=== PATIENT | female | born 1945 | race Caucasian/White ===

== ENCOUNTER 2016-03-10 15:15 | Inpatient (IN) ==
--- NOTE | 2016-03-10 17:00 | Pulmonology History & Physical ---
Assessment and Plan (1) Bronchiectasis with acute lower respiratory infection Status: Acute Assessment and plan: She has been on 2 rounds of oral antibiotics as an outpatient and has not cleared. She is admitted for intravenous antibiotics as well as Solu-Medrol and bronchodilators. Current Visit: Yes (2) Acute bronchitis with bronchospasm Status: Acute Assessment and plan: She will need bronchodilators and we will use low-dose corticosteroids. Watch her blood sugars closely while on them. Current Visit: Yes (3) Hyperlipidemia Status: Acute Assessment and plan: Control with medications. She is chronically on pravastatin. Current Visit: Yes (4) Diabetes mellitus type 2 in nonobese Status: Acute Assessment and plan: Continue her home dose of metformin and add sliding scale insulin. Steroids and stress of the acute illness or likely to make her glucoses harder to control. Current Visit: Yes 12 point system: reviewed and no additional remarkable complaints except as stated - Cardiovascular Cardiovascular: Present: chest pain at rest, dyspnea, dyspnea on exertion - Respiratory Respiratory: Present: cough, dyspnea, dyspnea on exertion, wheezing, change in phlegm color - Gastrointestinal Gastrointestinal: Present: dyspepsia History of Present Illness Chief complaint: cough congestion shortness of breath History of present illness: Ms. Yoder is a 70 year old female who has cylindrical bronchiectasis in her left lower lobe. She has had a cough and congestion going on for about 3 weeks including wheezing. She has been treated with oral antibiotics and really hasn' t improved. She was put on theophylline and Zanaflex in the ER a few days ago but it didn't help. She was having some pain in her chest which was atypical and had a cardiac catheterization about 3 weeks ago that was negative. She has never been a smoker. She's allergic to slip but no antibiotics. She has been on Mucinex without much help. Home Medications Medication Instructions Recorded Confirmed Type Albuterol Sulfate [Albuterol Neb] 0.083 % INH Q4-6H PRN 03/06/16 03/06/16 History Albuterol Sulfate [Proair HFA] 90 mcg INH Q6HR PRN 03/06/16 03/06/16 History Cholecalciferol (Vitamin D3) 1,000 unit PO DAILY 03/06/16 03/06/16 History [Vitamin D3] Ferrous Gluconate 324 mg PO BID 03/06/16 03/06/16 History Fexofenadine [Libby] 180 mg PO DAILY 03/06/16 03/06/16 History Lansoprazole [Prevacid] 30 mg PO DAILY 03/06/16 03/06/16 History Pravastatin Sodium 40 mg PO DAILY 03/06/16 03/06/16 History Valsartan/Hydrochlorothiazide 1 each PO DAILY 03/06/16 03/06/16 History [Valsartan-Hctz 320-12.5 mg Tab] metFORMIN [Glucophage] 1,000 mg PO BID 03/06/16 03/06/16 History Levofloxacin Tab [Levaquin Tab] 750 mg PO DAILY #10 tablet 03/07/16 Rx Theophylline ER Cap (24 Hr) 200 mg PO DAILY #10 capsule 03/07/16 Rx [[place]-24] Tizanidine HCl [Zanaflex] 2 mg PO Q6H #40 capsule 03/07/16 Rx Allergies Allergy/AdvReac Type Severity Reaction Status Date / Time shrimp Allergy Vomiting Verified 03/06/16 21:55 Medical,Surgical,& Family Hx - Medical History Cardio: History of: Hypertension Endocrine: History of: Diabetes Mellitus (NIDDM), Dyslipidemia Respiratory: History of: Asthma - Surgical History Cardiac Surgeries: Sugical HX of: Cardiac Catheterization - Social History Smoking Status: Never smoker Exam (Pulmonay) H&P - Constitutional Vitals: Temperature 90.9 degrees. Pulse 80 respirations 20 blood pressure 140/70. Weight is 204. Exam: Patient is alert and oriented. She appears short of breath. Pupils react to light. Throat is clear. Chest reveals some scattered rhonchi primarily in the left lower lobe. She does have some expiratory wheezing. Heart normal rate rhythm no murmurs. Abdomen soft nontender no masses. Bowel sounds present. Extremities no clubbing cyanosis or edema. Calves nontender.
[2016-03-10] MEDS ORDERED: DEXTROSE 50% 25 GM/50 ML VIAL IV PRN (19:22)
[2016-03-10] MEDS ORDERED: GLUCAGON 1 MG VIAL IM PRN (19:22)
[2016-03-10] MEDS ORDERED: FEXOFENADINE 180 MG TABLET PO PRN (19:37)
[2016-03-10] MEDS ORDERED: ALBUTEROL 2.5 MG/3 ML NEB RESP TX PRN (19:49)
[2016-03-10] MEDS: DORNASE ALFA 2.5 MG/2.5 ML VIAL RESP TX SCH (20:00)
[2016-03-10] MEDS: BUDESONIDE 0.25 MG/2 ML NEB RESP TX SCH (20:00)
[2016-03-10 20:35] LABS: Basophils % 0.1 % (0.0-0.8); Hematocrit 39.1 VOL% (35.7-47.0); Hemoglobin 12.6 GM/DL (12.0-16.0); Immature Granulocytes Absolute 0.46 #; Lymphocytes # 2.5 10*3/uL (1.4-4.0); Lymphocytes % 21.9 % (21.3-54.2); Mean Corpuscular HGB Conc 32.2 GM/DL (32-36); Mean Corpuscular Hemoglobin 30 PG (27-34); Mean Corpuscular Volume 91.8 FL (87-102); Monocytes % 8.4 % (1.7-12.7); NRBC # 0.02 10*3/uL; Neutrophils # 7.5 10*3/uL (1.4-7.4); Neutrophils % 65.6 % (38.7-73.9); Platelet Count 276 T/CUMM (130-400); Red Blood Count 4.26 MC/CUMM (3.8-5.5); Red Cell Distribution Width 14.3 % (9.3-17.3); White Blood Count 11.4 T/CUMM (4-12)
[2016-03-10] MEDS: INSULIN REGULAR 100 UNIT/ML SUBCUT SCH (20:57)
[2016-03-10] MEDS: AZITHROMYCIN 250 MG TABLET PO SCH (20:58)
[2016-03-10] MEDS: PRAVASTATIN 40 MG TABLET PO SCH (20:58)
[2016-03-10] MEDS: methylPREDNISolone SOD SUC 40 MG/1 ML VIAL IV SCH (21:00)
[2016-03-10] MEDS: LEVOFLOXACIN INJ 500 MG in PREMIX 1 EACH IV SCH (21:00)
[2016-03-10 21:05] LABS: Alanine Aminotransferase 26 U/L (13-56); Albumin 3.6 G/DL (3.4-5.0); Alkaline Phosphatase 65 U/L (45-117); Aspartate Amino Transferase 8 U/L (0-37); Bilirubin,Total < 0.39 MG/DL (0.2-1.0); Blood Urea Nitrogen 34 MG/DL (7-18); Calcium 9.6 MG/DL (8.5-10.1); Total Protein 6.5 G/DL (6.4-8.3)
[2016-03-10 21:06] LABS: Glucose 284 MG/DL (74-106); Osmolality,Calculated 298.3 MOS/KG (273-304); Potassium 4.4 MMOL/L (3.5-5.1); Sodium 141 MMOL/L (136-145)
[2016-03-10 21:23] LABS: Free T4 (Free Thyroxine) 1.24 NG/DL (0.76-1.46); Thyroid Stimulating Hormone 0.878 uIU/ml (0.358-3.74)
[2016-03-10] MEDS: CEFEPIME 1,000 MG in SODIUM CHLORIDE 0.9% 100 ML IV SCH (23:05)
[2016-03-10 23:39] LABS: Apearance,Urine CLEAR (Clear); Bilirubin,Urine Negative (Negative); Blood, Urine Negative (Negative); Glucose,Urine (UA) >=500 mg/dL (Negative); Hyaline Casts,Urine 3 /LPF (0-3); Ketones,Urine Negative (Negative); Mucus,Urine Occasional /LPF (Occasional); Nitrite,Urine Negative (Negative); Protein,Urine Negative; Squamous Epithelial Cell,Urine Occasional /HPF (0-10); Urine Color Yellow (Yellow); Urine Specific Gravity 1.018 (1.001-1.035); Urine Urobilinogen < 2.0 EU/DL (0.2-1.0); WBC,Urine 1 /HPF (0-6)
[2016-03-11] MEDS: ALBUTEROL/IPRATROPIUM 3 ML NEB RESP TX SCH ×4 (00:09→19:50)
[2016-03-11] MEDS: BUDESONIDE 0.25 MG/2 ML NEB RESP TX SCH ×2 (06:56→19:50)
--- NOTE | 2016-03-11 07:14 | EKG Report ---
Stationary ECG Study [facility] Test Date: 03/11/2016 7:09:09 AM Pat Name: TREY CEDILLO Department: Room: 518 Gender: F Reconcilement Clerk: BETH : 1945 Requested by: Bryce Gillis Order Number: [id number] Reading MD: MAREN GARCIA Intervals [place] Rate: 85 P: 81 [place]: 148 QRS: 65 QRSD: 95 T: 60 QT: 363 QTc: 406 Interpretive Statements SINUS RHYTHM POSSIBLE INFERIOR MYOCARDIAL INFARCTION, PROBABLY OLD Electronically Signed On 03-11-16 18:10:08 [employer] by MAREN GARCIA [email or web address]
[2016-03-11] MEDS: DORNASE ALFA 2.5 MG/2.5 ML VIAL RESP TX SCH ×2 (08:13→19:50)
--- NOTE | 2016-03-11 08:18 | Pulmonology Progress Note ---
Pulmonary - PN: Subj Interval history: This 70-year-old white female has cylindrical objects his left lower lobe. She' s had a cough congestion and acute bronchitis going on for about 3 weeks. She' s had 2 rounds of antibiotics and hasn't improved. She is admitted yesterday. Says she feels a little better this morning but still got short of breath during the night. Oxygen saturations are in the upper 90s on room air, however I think nasal oxygen may help her with the hyperventilation. Exam (Progress Note) - Constitutional Vitals: Period Temp Pulse Resp BP Sys/Dorman Pulse Ox Last 24 Hr 97 F-98.3 F 75-97 18-22 110-160/52-97 94-100 Exam: Patient is alert oriented. Vital signs are normal. HEENT: Pupils react to light. Throat is clear. Neck supple no bruits. Chest reveals some expiratory rhonchi bilaterally. Heart normal rate rhythm no murmurs no rubs no gallops. Abdomen soft no masses. Extremities no clubbing cyanosis or edema. Calves nontender. Results - Labs CBC & BMP: 03/10/16 20:26 03/10/16 20:26 Lab Results: I have reviewed the past 24 hour labs Assessment and Plan (1) Bronchiectasis with acute lower respiratory infection Status: Acute Assessment and plan: She has been on 2 rounds of oral antibiotics as an outpatient and has not cleared. She is admitted for intravenous antibiotics as well as Solu-Medrol and bronchodilators. 03/11/2016 empiric antibiotics, bronchodilators, Solu-Medrol, mucolytics. Current Visit: Yes (2) Acute bronchitis with bronchospasm Status: Acute Assessment and plan: She will need bronchodilators and we will use low-dose corticosteroids. Watch her blood sugars closely while on them. 03/11/16 still having some bronchospasm. Current Visit: Yes (3) Hyperlipidemia Status: Acute Assessment and plan: Control with medications. She is chronically on pravastatin. Current Visit: Yes (4) Diabetes mellitus type 2 in nonobese Status: Acute Assessment and plan: Continue her home dose of metformin and add sliding scale insulin. Steroids and stress of the acute illness or likely to make her glucoses harder to control. 03/11/2016 should be able to manage with sliding scale. Glucoses are in the upper 200s. We will increase sliding scale a bit. Current Visit: Yes
[2016-03-11] MEDS: INSULIN REGULAR 100 UNIT/ML SUBCUT SCH ×4 (08:50→20:20)
[2016-03-11] MEDS: metFORMIN 500 MG TABLET PO SCH ×2 (08:51→16:54)
[2016-03-11] MEDS: hydroCHLOROthiazide 12.5 MG CAPSULE PO SCH (08:51)
[2016-03-11] MEDS: CHOLECALCIFEROL 1,000 UNIT TABLET PO SCH (08:52)
[2016-03-11] MEDS: methylPREDNISolone SOD SUC 40 MG/1 ML VIAL IV SCH ×2 (08:52→20:20)
[2016-03-11] MEDS: FERROUS SULFATE 325 MG TABLET PO SCH (08:52)
[2016-03-11] MEDS: PANTOPRAZOLE 40 MG TABLET PO SCH (08:52)
[2016-03-11] MEDS: VALSARTAN 160 MG TABLET PO SCH (08:52)
[2016-03-11] MEDS: CEFEPIME 1,000 MG in SODIUM CHLORIDE 0.9% 100 ML IV SCH ×2 (09:00→21:40)
[2016-03-11] MEDS: LEVOFLOXACIN INJ 500 MG in PREMIX 1 EACH IV SCH (20:19)
[2016-03-11] MEDS: PRAVASTATIN 40 MG TABLET PO SCH (20:20)
[2016-03-12] MEDS: ALBUTEROL/IPRATROPIUM 3 ML NEB RESP TX SCH ×4 (00:20→20:47)
[2016-03-12] MEDS: BUDESONIDE 0.25 MG/2 ML NEB RESP TX SCH ×2 (07:27→20:47)
[2016-03-12] MEDS: DORNASE ALFA 2.5 MG/2.5 ML VIAL RESP TX SCH ×2 (07:39→20:47)
--- NOTE | 2016-03-12 08:20 | XRay Report ---
XR chest 2V Indication: Congestion, bronchitis Comparison: Chest x-ray dated March 06, 2016 Technique: Frontal and lateral views of the chest Findings: Mild cardiomegaly. Mild hyperexpansion of lungs suggesting possible emphysematous change. No focal consolidation, pleural effusion, or pneumothorax. Osseous and surrounding soft tissue structures appear grossly unchanged. There is moderate dextroconvex curvature of the thoracic spine. IMPRESSION: As above. PROCEDURE INTERPRETED AT [facility] DEPARTMENT OF RADIOLOGY Final Report Signed by: Dr Robinson Bueno
[2016-03-12] MEDS: VALSARTAN 160 MG TABLET PO SCH (09:03)
[2016-03-12] MEDS: CHOLECALCIFEROL 1,000 UNIT TABLET PO SCH (09:03)
[2016-03-12] MEDS: methylPREDNISolone SOD SUC 40 MG/1 ML VIAL IV SCH ×2 (09:03→09:33)
[2016-03-12] MEDS: AZITHROMYCIN 250 MG TABLET PO SCH (09:03)
[2016-03-12] MEDS: hydroCHLOROthiazide 12.5 MG CAPSULE PO SCH (09:03)
[2016-03-12] MEDS: INSULIN REGULAR 100 UNIT/ML SUBCUT SCH ×4 (09:04→22:10)
[2016-03-12] MEDS: metFORMIN 500 MG TABLET PO SCH ×2 (09:04→18:00)
[2016-03-12] MEDS: PANTOPRAZOLE 40 MG TABLET PO SCH (09:04)
[2016-03-12] MEDS: FERROUS SULFATE 325 MG TABLET PO SCH (09:04)
--- NOTE | 2016-03-12 09:24 | Pulmonology Progress Note ---
Pulmonary - PN: Subj Interval history: This 70-year-old white female has cylindrical objects his left lower lobe. She' s had a cough congestion and acute bronchitis going on for about 3 weeks. She' s had 2 rounds of antibiotics and hasn't improved. She is admitted yesterday. Says she feels a little better this morning but still got short of breath during the night. Oxygen saturations are in the upper 90s on room air, however I think nasal oxygen may help her with the hyperventilation. 03/12/16 patient is feeling a little better today. Slept better. We will reduce steroids a little. Needs another few days here. Exam (Progress Note) - Constitutional Vitals: Period Temp Pulse Resp BP Sys/Dorman Pulse Ox Last 24 Hr 97.3 F-98.1 F 74-103 16-20 134-150/60-82 95-100 Exam: Patient is alert oriented. Vital signs are normal. HEENT: Pupils react to light. Throat is clear. Neck supple no bruits. Chest reveals some expiratory rhonchi bilaterally, but sounds better. Heart normal rate rhythm no murmurs no rubs no gallops. Abdomen soft no masses. Extremities no clubbing cyanosis or edema. Calves nontender. Results - Labs CBC & BMP: 03/10/16 20:26 03/10/16 20:26 Lab Results: I have reviewed the past 24 hour labs - Diagnostic Findings Procedure: Chest x-ray: image reviewed by me (hyperinflation, no acute infiltrate.) Assessment and Plan (1) Bronchiectasis with acute lower respiratory infection Status: Acute Assessment and plan: She has been on 2 rounds of oral antibiotics as an outpatient and has not cleared. She is admitted for intravenous antibiotics as well as Solu-Medrol and bronchodilators. 03/11/2016 empiric antibiotics, bronchodilators, Solu-Medrol, mucolytics. 03/12/16 continuing medications We will start reducing steroids today. Current Visit: Yes (2) Acute bronchitis with bronchospasm Status: Acute Assessment and plan: She will need bronchodilators and we will use low-dose corticosteroids. Watch her blood sugars closely while on them. 03/11/16 still having some bronchospasm. 03/12/16 lungs do sound a little better. Current Visit: Yes (3) Hyperlipidemia Status: Acute Assessment and plan: Control with medications. She is chronically on pravastatin. Current Visit: Yes (4) Diabetes mellitus type 2 in nonobese Status: Acute Assessment and plan: Continue her home dose of metformin and add sliding scale insulin. Steroids and stress of the acute illness or likely to make her glucoses harder to control. 03/11/2016 should be able to manage with sliding scale. Glucoses are in the upper 200s. We will increase sliding scale a bit. 03/12/16 glucoses still. We will reduce steroids a little. Current Visit: Yes
[2016-03-12] MEDS: CEFEPIME 1,000 MG in SODIUM CHLORIDE 0.9% 100 ML IV SCH ×2 (09:33→23:11)
[2016-03-12] MEDS: LEVOFLOXACIN INJ 500 MG in PREMIX 1 EACH IV SCH (22:09)
[2016-03-12] MEDS: PRAVASTATIN 40 MG TABLET PO SCH (22:10)
[2016-03-13] MEDS: ALBUTEROL/IPRATROPIUM 3 ML NEB RESP TX SCH ×4 (00:08→20:04)
[2016-03-13] MEDS: BUDESONIDE 0.25 MG/2 ML NEB RESP TX SCH ×2 (06:56→20:04)
[2016-03-13] MEDS: metFORMIN 500 MG TABLET PO SCH ×2 (08:50→16:24)
[2016-03-13] MEDS: CHOLECALCIFEROL 1,000 UNIT TABLET PO SCH (08:50)
[2016-03-13] MEDS: hydroCHLOROthiazide 12.5 MG CAPSULE PO SCH (08:50)
[2016-03-13] MEDS: FERROUS SULFATE 325 MG TABLET PO SCH (08:50)
[2016-03-13] MEDS: PANTOPRAZOLE 40 MG TABLET PO SCH (08:50)
[2016-03-13] MEDS: VALSARTAN 160 MG TABLET PO SCH (08:50)
[2016-03-13] MEDS: methylPREDNISolone SOD SUC 40 MG/1 ML VIAL IV SCH (08:51)
[2016-03-13] MEDS: INSULIN REGULAR 100 UNIT/ML SUBCUT SCH ×4 (08:55→21:09)
[2016-03-13] MEDS: CEFEPIME 1,000 MG in SODIUM CHLORIDE 0.9% 100 ML IV SCH ×2 (09:08→22:11)
--- NOTE | 2016-03-13 11:57 | Pulmonology Progress Note ---
Pulmonary - PN: Subj Interval history: This 70-year-old white female has cylindrical objects his left lower lobe. She' s had a cough congestion and acute bronchitis going on for about 3 weeks. She' s had 2 rounds of antibiotics and hasn't improved. She is admitted yesterday. Says she feels a little better this morning but still got short of breath during the night. Oxygen saturations are in the upper 90s on room air, however I think nasal oxygen may help her with the hyperventilation. 03/12/16 patient is feeling a little better today. Slept better. We will reduce steroids a little. Needs another few days here. 03/13/16 feels better and chest sounds better. We will plan to change to oral medications tomorrow and consider discharge then if stable Exam (Progress Note) - Constitutional Vitals: Period Temp Pulse Resp BP Sys/Dorman Pulse Ox Last 24 Hr 97.1 F-98.2 F 85-104 16-20 126-153/62-84 94-99 Exam: Patient is alert oriented. Vital signs are normal. HEENT: Pupils react to light. Throat is clear. Neck supple no bruits. Chest reveals some minimal expiratory rhonchi bilaterally, but sounds better. Heart normal rate rhythm no murmurs no rubs no gallops. Abdomen soft no masses. Extremities no clubbing cyanosis or edema. Calves nontender. Results - Labs CBC & BMP: 03/10/16 20:26 03/10/16 20:26 Lab Results: I have reviewed the past 24 hour labs Assessment and Plan (1) Bronchiectasis with acute lower respiratory infection Status: Acute Assessment and plan: She has been on 2 rounds of oral antibiotics as an outpatient and has not cleared. She is admitted for intravenous antibiotics as well as Solu-Medrol and bronchodilators. 03/11/2016 empiric antibiotics, bronchodilators, Solu-Medrol, mucolytics. 03/12/16 continuing medications We will start reducing steroids today. 03/13/16 continuing IV medications. Hopefully can discharge tomorrow if stable. Current Visit: Yes (2) Acute bronchitis with bronchospasm Status: Acute Assessment and plan: She will need bronchodilators and we will use low-dose corticosteroids. Watch her blood sugars closely while on them. 03/11/16 still having some bronchospasm. 03/12/16 lungs do sound a little better. 2/2/17 sounds almost clear. Continuing bronchodilators. Current Visit: Yes (3) Hyperlipidemia Status: Acute Assessment and plan: Control with medications. She is chronically on pravastatin. Current Visit: Yes (4) Diabetes mellitus type 2 in nonobese Status: Acute Assessment and plan: Continue her home dose of metformin and add sliding scale insulin. Steroids and stress of the acute illness or likely to make her glucoses harder to control. 03/11/2016 should be able to manage with sliding scale. Glucoses are in the upper 200s. We will increase sliding scale a bit. 03/12/16 glucoses still elevated. We will reduce steroids a little. 03/13/16 glucoses look a little better. Current Visit: Yes
[2016-03-13] MEDS: PRAVASTATIN 40 MG TABLET PO SCH (21:08)
[2016-03-13] MEDS: LEVOFLOXACIN INJ 500 MG in PREMIX 1 EACH IV SCH (21:08)
[2016-03-14] MEDS: ALBUTEROL/IPRATROPIUM 3 ML NEB RESP TX SCH ×2 (00:27→06:53)
[2016-03-14] MEDS: BUDESONIDE 0.25 MG/2 ML NEB RESP TX SCH (06:53)
--- NOTE | 2016-03-14 08:37 | Discharge Summary ---
Hospital Course - Hospital Course Hospital Course: This 70-year-old white female was admitted with increased shortness of breath and hypoxemia. She has bronchiectasis and had acute bronchitis with infected bronchiectasis. She was treated with intravenous cefepime and Levaquin and intravenous steroids. She's much better now. Her oxygen saturations in the mid 90s on room air. She's changed to oral medications with Levaquin 500 mg daily and prednisone 40 mg daily for the next 5 days. I will see her in 2 weeks in the office. Chemistries were acceptable. Normal renal function. Follow-up chest x-ray done March 12 was essentially clear. Diagnosis - Discharge Diagnosis (1) Bronchiectasis with acute lower respiratory infection Status: Acute (2) Acute bronchitis with bronchospasm Status: Acute (3) Hyperlipidemia Status: Chronic (4) Diabetes mellitus type 2 in nonobese Status: Chronic Discharge Plan - Discharge Data Disposition: Disch To Home/Self Care Condition at Discharge: Stable Discharge Diet: advance to your usual diet Activity: resume usual activities as tolerated Hygiene: no restrictions Weight Bearing at Discharge: full weight bearing Driving: no restrictions Contact your physician if you experience:: fever over 101 - Discharge Medications No Action Fexofenadine [Libby] 180 mg PO DAILY Erythromycin Base [Erythromycin DR Cap] 250 mg PO QOTHER DAY Budesonide [Budesonide Neb Soln] 0.25 mg RESP TX BID Lansoprazole [Prevacid] 30 mg PO DAILY Cholecalciferol (Vitamin D3) [Vitamin D3] 1,000 unit PO DAILY Ferrous Gluconate 324 mg PO BID Valsartan/Hydrochlorothiazide [Valsartan-Hctz 320-12.5 mg Tab] 1 each PO DAILY Pravastatin Sodium 40 mg PO DAILY metFORMIN [Glucophage] 1,000 mg PO BID W/MEALS Levofloxacin Tab [Levaquin Tab] 750 mg PO DAILY #10 tablet Albuterol/Ipratropium Neb [Duoneb] 3 ml RESP TX RT Q6H - Follow Up or Referral Follow Up: Bryce Gillis MD [Physician] - 2 Weeks (2 wks CBC, BMP, CXR) - Forms/Instructions Exam - Constitutional Vitals: Period Temp Pulse Resp BP Sys/Dorman Pulse Ox Last 24 Hr 97.1 F-98.3 F 87-118 16-20 110-130/42-73 95-99 Exam: Patient is alert oriented. Vital signs are normal. HEENT: Pupils react to light. Throat is clear. Neck supple no bruits. Chest reveals prolonged expiratory phase no wheezes. Heart normal rate rhythm no murmurs no rubs no gallops. Abdomen soft no masses. Extremities no clubbing cyanosis or edema. Calves nontender. Discharge Results Procedures and tests throughout hospitalization: Pending Orders 03/10/16 20:26 Blood Culture Stat 03/12/16 Sputum Culture and Gram Stain Stat Labs on day of discharge: Labs from last 24 hours 03/13/16 03/13/16 03/13/16 19:04 15:02 11:11 POC Glucose 139 H 387 H 310 H Preliminary micro results at discharge 03/10/16 20:26 Blood Culture - Preliminary Blood No growth at 3 days 03/10/16 20:26 Blood Culture - Preliminary Blood No growth at 3 days 03/12/16 Unknown Sputum Culture - Preliminary Sputum Normal No at 24 hours - Imaging and Cardiology Procedure: Chest x-ray: image reviewed by me (on 03/12/2016 is clear) DS: Provider Date of admission: 03/10/16 19:20 Primary care physician: Ryan Ballesteros Attending physician on admission: Bryce Gillis MD Consults: 03/10/16 17:21 Consult to Dietitian [CONS] Routine Reason for Dietitian: Other Consult Comment: weight loss Discharging clinician: Bryce Gillis MD Expected date of discharge: 03/14/16
[2016-03-14] MEDS ORDERED: LEVOFLOXACIN 500 MG TABLET PO SCH (09:00)
[2016-03-14] MEDS ORDERED: predniSONE 20 MG TABLET PO SCH (09:00)
[2016-03-14] MEDS: VALSARTAN 160 MG TABLET PO SCH (09:37)
[2016-03-14] MEDS: hydroCHLOROthiazide 12.5 MG CAPSULE PO SCH (09:38)
[2016-03-14] MEDS: AZITHROMYCIN 250 MG TABLET PO SCH (09:38)
[2016-03-14] MEDS: CHOLECALCIFEROL 1,000 UNIT TABLET PO SCH (09:38)
[2016-03-14] MEDS: FERROUS SULFATE 325 MG TABLET PO SCH (09:38)
[2016-03-14] MEDS: INSULIN REGULAR 100 UNIT/ML SUBCUT SCH (09:38)
[2016-03-14] MEDS: metFORMIN 500 MG TABLET PO SCH (09:38)
[2016-03-14] MEDS: PANTOPRAZOLE 40 MG TABLET PO SCH (09:38)
[2016-03-14 10:47] VITALS: BP 129/68
== END 2016-03-14 11:43 | disposition home or self-care (01) | DRG 192 ==
LOC: N.5E 15:46
PROVIDERS: ADMIT Internal Medicine Pulmonary Disease; ATTEND Internal Medicine Pulmonary Disease